=== PATIENT | male | born 1950 | race Caucasian/White ===

== ENCOUNTER 2020-07-30 21:17 | Inpatient (IN) ==
[2020-07-30] MEDS ORDERED: NS 0.9% 1000 ml BAG 1,000 ML IV ONE (21:22)
[2020-07-30] MEDS ORDERED: Iodixanol (CONTRAST) 320 MG/ML 100 ML SDV IV ONE (21:39)
[2020-07-30 21:58] LABS: ABS Basophils 0.1 10^3/ul (0-0.2); ABS Eosinophils 0.7 10^3/ul (0-0.6); ABS Lymphocytes 0.8 10^3/ul (1.0-4.8); ABS Monocytes 1.1 10^3/ul (0-0.8); ABS Neutrophils 11.8 10^3/ul (1.5-7.7); Eosinophil % 4.9 %; Hematocrit 41 % (42-52); Hemoglobin 13.2 g/dL (14.0-18.0); Lymphocyte % 5.7 %; Mean Corpuscular HGB Conc 33 g/dL (31-36); Mean Corpuscular Hemoglobin 28 pg (27-31); Mean Corpuscular Volume 87 fL (80-94); Mean Platelet Volume 8.2 fL (7.4-10.4); Platelet Count 256 10^3/uL (150-450); Red Blood Count 4.69 10^6 /uL (4.18-5.48); Red Cell Distribution Width 15 % (10-15); White Blood Count 14.5 10^3/uL (3.5-10.8)
[2020-07-30 22:17] LABS: ALT 21 U/L (7-52); AST 16 U/L (13-39); Albumin 3.4 g/dL (3.2-5.2); Albumin/Globulin Ratio 1.2 (1-3); Alkaline Phosphatase 73 U/L (34-104); BUN/Creatinine Ratio 26.5 (8-20); Blood Urea Nitrogen 41 mg/dL (6-24); CO2 Carbon Dioxide 30 mmol/L (22-32); Calcium 8.5 mg/dL (8.6-10.3); Chloride 88 mmol/L (101-111); Cholesterol 214 mg/dL; EGFR African American 54.1 (>60); EGFR Non-African American 44.7 (>60); Globulin 2.8 g/dL (2-4); Glucose 133 mg/dL (70-100); HDL Cholesterol 33.8 mg/dL; LDL Cholesterol 138 mg/dL; Sodium 124 mmol/L (135-145); Total Protein 6.2 g/dL (6.4-8.9); Triglycerides 212 mg/dL
[2020-07-30 22:55] LABS: Anion Gap 6 mmol/L (2-11); Potassium 6.1 mmol/L (3.5-5.0)
[2020-07-30 23:03] LABS: Urine Appearance Cloudy; Urine Bilirubin Negative (Negative); Urine Blood Negative (Negative); Urine Color Yellow; Urine Glucose Negative (Negative); Urine Ketones Negative (Negative); Urine Nitrite Negative (Negative); Urine Protein Negative (Negative); Urine Specific Gravity 1.044 (1.010-1.030); Urine Urobilinogen Negative (Negative)
[2020-07-30 23:05] LABS: Activated Partial Thrombo Time 30.2 seconds (26.0-38.0); INR 1.36 (0.82-1.09)
[2020-07-31] MEDS ORDERED: Sodium Polystyrene ORAL.SUSP 15 GM/60 ML BTL PO ONE (00:10)
[2020-07-31] MEDS ORDERED: Calcium Gluconate 1 GM in NS 0.9% 50 ML 50 ML IV ONE (00:10)
[2020-07-31] MEDS ORDERED: Dextrose 50% Syringe 50 ml 25 GM/50 ML SYRINGE IV PUSH ONE (00:11)
[2020-07-31] MEDS ORDERED: NS 0.9% 1000 ml BAG 1,000 ML IV SCH (00:45)
[2020-07-31] MEDS ORDERED: NS 0.9% 50 ML 50 ML ONE (00:59)
[2020-07-31] MEDS ORDERED: CALCIUM GLUCONATE 1GM/50ML NS BAG IV ONE (01:15)
[2020-07-31 03:37] LABS: BUN/Creatinine Ratio 29.5 (8-20); Blood Urea Nitrogen 36 mg/dL (6-24); C Reactive Protein 78.03 mg/L (<8.01); CO2 Carbon Dioxide 23 mmol/L (22-32); Calcium 8.7 mg/dL (8.6-10.3); Chloride 93 mmol/L (101-111); EGFR African American 71.3 (>60); EGFR Non-African American 58.9 (>60); Glucose 110 mg/dL (70-100); Sodium 125 mmol/L (135-145)
[2020-07-31 03:42] LABS: Troponin I 0.05 ng/mL (<0.03)
[2020-07-31 04:10] LABS: Anion Gap 9 mmol/L (2-11); Potassium 5.1 mmol/L (3.5-5.0)
[2020-07-31] MEDS: Polyethylene Glycol 3350 17 GM PACKET PO SCH (10:14)
[2020-07-31 15:07] LABS: CO2 Carbon Dioxide 22 mmol/L (22-32); Calcium 8.1 mg/dL (8.6-10.3); Chloride 93 mmol/L (101-111); Sodium 125 mmol/L (135-145)
[2020-07-31 15:13] LABS: BUN/Creatinine Ratio 26.8 (8-20); Blood Urea Nitrogen 33 mg/dL (6-24); EGFR African American 70.6 (>60); EGFR Non-African American 58.3 (>60); Glucose 151 mg/dL (70-100)
[2020-07-31 15:18] LABS: Anion Gap 10 mmol/L (2-11)
[2020-08-01 06:14] LABS: ABS Basophils 0.1 10^3/ul (0-0.2); ABS Eosinophils 0.9 10^3/ul (0-0.6); ABS Lymphocytes 0.7 10^3/ul (1.0-4.8); ABS Monocytes 1.3 10^3/ul (0-0.8); ABS Neutrophils 9.8 10^3/ul (1.5-7.7); Eosinophil % 7.1 %; Hematocrit 38 % (42-52); Hemoglobin 12.7 g/dL (14.0-18.0); Lymphocyte % 5.7 %; Mean Corpuscular HGB Conc 33 g/dL (31-36); Mean Corpuscular Hemoglobin 29 pg (27-31); Mean Corpuscular Volume 86 fL (80-94); Platelet Count 245 10^3/uL (150-450); Red Blood Count 4.45 10^6 /uL (4.18-5.48); Red Cell Distribution Width 15 % (10-15); White Blood Count 12.9 10^3/uL (3.5-10.8)
[2020-08-01 06:30] LABS: BUN/Creatinine Ratio 27.8 (8-20); Calcium 8.2 mg/dL (8.6-10.3); EGFR African American 92.9 (>60); EGFR Non-African American 76.7 (>60); Potassium 4.1 mmol/L (3.5-5.0)
[2020-08-01] MEDS: Polyethylene Glycol 3350 17 GM PACKET PO SCH (09:03)
[2020-08-01 09:16] LABS: Troponin I 0.07 ng/mL (<0.03)
[2020-08-01] MEDS ORDERED: Gadoteridol (CONTRAST) 279.3 MG/ML 10 ML IV ONE (17:43)
[2020-08-02 06:29] LABS: Hematocrit 39 % (42-52); Hemoglobin 12.7 g/dL (14.0-18.0); Mean Corpuscular HGB Conc 33 g/dL (31-36); Mean Corpuscular Hemoglobin 28 pg (27-31); Mean Corpuscular Volume 86 fL (80-94); Mean Platelet Volume 8.5 fL (7.4-10.4); Platelet Count 279 10^3/uL (150-450); Red Cell Distribution Width 15 % (10-15); White Blood Count 13.9 10^3/uL (3.5-10.8)
[2020-08-02 06:38] LABS: BUN/Creatinine Ratio 27.1 (8-20); Calcium 8.7 mg/dL (8.6-10.3); EGFR Non-African American 77.7 (>60); Potassium 4.6 mmol/L (3.5-5.0)
[2020-08-02] MEDS: Polyethylene Glycol 3350 17 GM PACKET PO SCH (10:30)
[2020-08-02] MEDS ORDERED: fentaNYL 100 mcg/2 ml 50 MCG/ML VIAL ONE (13:54)
[2020-08-02] MEDS ORDERED: Midazolam 5 mg/5 ml VIAL 1 mg/ml 5 ml VIAL (5 mg) ONE (13:54)
[2020-08-02] MEDS ORDERED: Naloxone 0.4 mg VIAL 0.4 mg/ml 1 ml VIAL ONE (13:54)
[2020-08-02] MEDS ORDERED: Flumazenil 0.5 mg/5 ml 0.1 MG/ML 5 ml VIAL ONE (13:55)
[2020-08-02 16:46] LABS: Body Fluid Source Peritonial Fluid
[2020-08-02 20:59] LABS: Body Fluid Mono 19 %; Body Fluid Other Cells 13
[2020-08-03 07:16] LABS: Hematocrit 40 % (42-52); Hemoglobin 13.3 g/dL (14.0-18.0); Mean Corpuscular HGB Conc 33 g/dL (31-36); Mean Corpuscular Hemoglobin 29 pg (27-31); Mean Corpuscular Volume 87 fL (80-94); Mean Platelet Volume 8.5 fL (7.4-10.4); Platelet Count 299 10^3/uL (150-450); Red Blood Count 4.64 10^6 /uL (4.18-5.48); Red Cell Distribution Width 15 % (10-15); White Blood Count 16.8 10^3/uL (3.5-10.8)
[2020-08-03 07:24] LABS: Calcium 8.7 mg/dL (8.6-10.3); Potassium 4.9 mmol/L (3.5-5.0)
[2020-08-03 07:30] LABS: BUN/Creatinine Ratio 25.9 (8-20); EGFR African American 78.7 (>60)
[2020-08-03] MEDS: Polyethylene Glycol 3350 17 GM PACKET PO SCH (10:38)
[2020-08-03] MEDS ORDERED: Magnesium Hydroxide LIQ 30 ML UDC PO ONE (12:35)
[2020-08-03] MEDS: Senna TAB 8.6 mg TAB PO SCH (20:51)
[2020-08-04 06:05] LABS: ABS Basophils 0.1 10^3/ul (0-0.2); ABS Eosinophils 0.5 10^3/ul (0-0.6); ABS Monocytes 1.2 10^3/ul (0-0.8); ABS Neutrophils 13.9 10^3/ul (1.5-7.7); Eosinophil % 3.2 %; Hematocrit 37 % (42-52); Hemoglobin 12.3 g/dL (14.0-18.0); Lymphocyte % 5.7 %; Mean Corpuscular HGB Conc 33 g/dL (31-36); Mean Corpuscular Hemoglobin 29 pg (27-31); Mean Corpuscular Volume 86 fL (80-94); Mean Platelet Volume 8.7 fL (7.4-10.4); Platelet Count 336 10^3/uL (150-450); Red Blood Count 4.32 10^6 /uL (4.18-5.48); Red Cell Distribution Width 15 % (10-15); White Blood Count 16.7 10^3/uL (3.5-10.8)
[2020-08-04 06:16] LABS: BUN/Creatinine Ratio 27.5 (8-20); Calcium 8.7 mg/dL (8.6-10.3); EGFR African American 59.8 (>60); EGFR Non-African American 49.4 (>60)
[2020-08-04 06:39] LABS: Potassium 5.7 mmol/L (3.5-5.0)
[2020-08-04] MEDS: Polyethylene Glycol 3350 17 GM PACKET PO SCH (07:52)
[2020-08-04] MEDS ORDERED: Patiromer POWDER 8.4 GM PAK PO SCH (11:00)
[2020-08-04 14:16] LABS: Fluid Type, Glucose PERITONEAL; Glucose, BF 41 mg/dL
[2020-08-04] MEDS ORDERED: NS 0.9% 500 ml BAG 500 ML IV ONE (17:21)
[2020-08-04] MEDS: Senna TAB 8.6 mg TAB PO SCH (21:04)
[2020-08-05] MEDS ORDERED: Calcium Carb (TUMS) 500 mg CHEW TAB PO PRN (00:53)
[2020-08-05 05:53] LABS: BUN/Creatinine Ratio 27.6 (8-20); Calcium 8.7 mg/dL (8.6-10.3); EGFR African American 45.2 (>60); EGFR Non-African American 37.4 (>60)
[2020-08-05 05:59] LABS: Potassium 6.5 mmol/L (3.5-5.0)
[2020-08-05] MEDS ORDERED: Sodium Polystyrene ORAL.SUSP 15 GM/60 ML BTL PO ONE (06:03)
[2020-08-05 06:24] LABS: Hematocrit 36 % (42-52); Mean Corpuscular HGB Conc 33 g/dL (31-36); Mean Corpuscular Hemoglobin 29 pg (27-31); Mean Corpuscular Volume 87 fL (80-94); Mean Platelet Volume 8.9 fL (7.4-10.4); Platelet Count 336 10^3/uL (150-450); Red Cell Distribution Width 15 % (10-15); White Blood Count 15.8 10^3/uL (3.5-10.8)
[2020-08-05] MEDS ORDERED: Calcium Gluconate 1 GM in NS 0.9% 50 ML 50 ML IV ONE (07:00)
[2020-08-05] MEDS ORDERED: Dextrose 50% Syringe 50 ml 25 GM/50 ML SYRINGE IV PUSH ONE ×2 (07:03→09:00)
[2020-08-05] MEDS: Polyethylene Glycol 3350 17 GM PACKET PO SCH (08:45)
[2020-08-05 10:31] LABS: Corrected Retic Count 3.1 % (0.5-1.5); Hematocrit for Retic CNT 36 % (42-52); Immature Retic Fraction 0.58; RBC Retic Count 4.13 10^6/uL (4.18-5.48)
[2020-08-05] MEDS ORDERED: NS 0.9% 500 ml BAG 500 ML IV ONE (10:40)
[2020-08-05 10:43] LABS: Indirect Bilirubin 0.5 mg/dL (0.3-1.0); Total Bilirubin 0.6 mg/dL (0.2-1.0)
[2020-08-05 10:44] LABS: BUN/Creatinine Ratio 28.7 (8-20); EGFR African American 46.1 (>60); EGFR Non-African American 38.1 (>60); Potassium 4.9 mmol/L (3.5-5.0)
[2020-08-05 11:01] LABS: Potassium 4.9 mmol/L (3.5-5.0)
[2020-08-05] MEDS: Patiromer POWDER 8.4 GM PAK PO SCH (12:35)
[2020-08-05 18:50] LABS: Phospholipid IgM AB <9.4 MPL
[2020-08-05] MEDS: Senna TAB 8.6 mg TAB PO SCH (21:30)
[2020-08-05] MEDS: Lactulose 30 ml UDC PO SCH (21:31)
[2020-08-06] MEDS: Ondansetron 4 mg VIAL 2 MG/ML 2 ml VIAL IV PRN ×2 (01:22→21:00)
[2020-08-06] MEDS ORDERED: Morphine 2 MG/ML SYRINGE IV ONE (04:50)
[2020-08-06 05:23] LABS: ABS Basophils 0.1 10^3/ul (0-0.2); ABS Eosinophils 0.5 10^3/ul (0-0.6); ABS Lymphocytes 1.1 10^3/ul (1.0-4.8); ABS Monocytes 1.3 10^3/ul (0-0.8); ABS Neutrophils 16.2 10^3/ul (1.5-7.7); Eosinophil % 2.5 %; Hematocrit 35 % (42-52); Hemoglobin 11.5 g/dL (14.0-18.0); Lymphocyte % 5.7 %; Mean Corpuscular HGB Conc 33 g/dL (31-36); Mean Corpuscular Hemoglobin 29 pg (27-31); Mean Corpuscular Volume 86 fL (80-94); Mean Platelet Volume 8.7 fL (7.4-10.4); Platelet Count 367 10^3/uL (150-450); Red Blood Count 4.02 10^6 /uL (4.18-5.48); Red Cell Distribution Width 16 % (10-15); White Blood Count 19.2 10^3/uL (3.5-10.8)
[2020-08-06 05:40] LABS: BUN/Creatinine Ratio 28.4 (8-20); Calcium 8.8 mg/dL (8.6-10.3); EGFR African American 44.6 (>60); EGFR Non-African American 36.9 (>60); Magnesium 2.9 mg/dL (1.9-2.7)
[2020-08-06 05:41] LABS: Potassium 5.4 mmol/L (3.5-5.0)
[2020-08-06] MEDS: Lactulose 30 ml UDC PO SCH ×3 (09:24→19:47)
[2020-08-06] MEDS: Polyethylene Glycol 3350 17 GM PACKET PO SCH (09:26)
[2020-08-06] MEDS: Patiromer POWDER 8.4 GM PAK PO SCH (10:20)
[2020-08-06] MEDS: HYDROmorphone 0.5 MG/0.5 ML SYRINGE IV SLOW PU PRN (15:03)
[2020-08-06 16:54] LABS: Body Fluid Source Peritonial Fluid
[2020-08-06] MEDS ORDERED: cefTRIAXone 1 gm/50 mL NS BAG 1 GM/50 ML BAG IVPB SCH (17:00)
[2020-08-06 17:39] LABS: BUN/Creatinine Ratio 28.9 (8-20); Calcium 8.9 mg/dL (8.6-10.3); EGFR African American 42.7 (>60); EGFR Non-African American 35.3 (>60)
[2020-08-06 17:42] LABS: Potassium 5.6 mmol/L (3.5-5.0)
[2020-08-06 17:52] LABS: Body Fluid Mono 29 %; Body Fluid Other Cells 1
[2020-08-06] MEDS ORDERED: Albumin Human 25% 25 GM/100 ML BTL IV ONE (18:27)
[2020-08-06] MEDS ORDERED: Albumin Human 25% 25 GM/100 ML BTL IV SCH (19:00)
[2020-08-06] MEDS: Albumin Human 25% 25 GM/100 ML IV SCH ×3 (19:40→23:11)
[2020-08-06] MEDS: Sodium Polystyrene ORAL.SUSP 15 GM/60 ML BTL PO SCH (19:43)
[2020-08-06] MEDS: Senna TAB 8.6 mg TAB PO SCH (19:48)
[2020-08-06] MEDS ORDERED: Piperacillin/Tazobac ADVAN 3.375 GM in NS 0.9% 100 ml BAG 100 ML IVPB ONE (22:41)
[2020-08-06] MEDS ORDERED: Zosyn per Pharmacy NOTE FOLLOW UP SCH (23:00)
[2020-08-06 23:25] LABS: BUN/Creatinine Ratio 28.2 (8-20); Calcium 8.7 mg/dL (8.6-10.3); EGFR African American 38.9 (>60); EGFR Non-African American 32.2 (>60)
[2020-08-06 23:31] LABS: Potassium 5.6 mmol/L (3.5-5.0)
[2020-08-07] MEDS ORDERED: Piperacillin/Tazobac ADVAN 3.375 GM in NS 0.9% 100 ml BAG 100 ML IVPB ONE (00:17)
[2020-08-07] MEDS: Sodium Polystyrene ORAL.SUSP 15 GM/60 ML BTL PO SCH ×3 (00:39→12:17)
[2020-08-07] MEDS ORDERED: Zosyn per Pharmacy NOTE FOLLOW UP SCH (01:00)
[2020-08-07] MEDS ORDERED: Prochlorperazine 5 mg/ml 2 ml VIAL (10 mg) IV ONE (02:13)
[2020-08-07] MEDS: ZOSYN 3.375 GM Q8H per EXTENDED INFUSION IV SCH ×3 (04:55→20:58)
[2020-08-07 05:43] LABS: INR 1.35 (0.82-1.09)
[2020-08-07 06:21] LABS: Hematocrit 32 % (42-52); Hemoglobin 10.7 g/dL (14.0-18.0); Mean Corpuscular HGB Conc 33 g/dL (31-36); Mean Corpuscular Hemoglobin 29 pg (27-31); Mean Corpuscular Volume 87 fL (80-94); Mean Platelet Volume 8.7 fL (7.4-10.4); Platelet Count 358 10^3/uL (150-450); Red Cell Distribution Width 16 % (10-15); White Blood Count 20.8 10^3/uL (3.5-10.8)
[2020-08-07] MEDS: HYDROmorphone 0.5 MG/0.5 ML SYRINGE IV SLOW PU PRN ×2 (06:30→17:27)
[2020-08-07 07:41] LABS: ABS Basophils 0.1 10^3/ul (0-0.2); ABS Eosinophils 0.1 10^3/ul (0-0.6); ABS Lymphocytes 0.7 10^3/ul (1.0-4.8); ABS Monocytes 1.2 10^3/ul (0-0.8); ABS Neutrophils 18.6 10^3/ul (1.5-7.7); Eosinophil % 0.7 %; Lymphocyte % 3.6 %
[2020-08-07 08:17] LABS: Hematocrit 33 % (42-52); Mean Corpuscular HGB Conc 33 g/dL (31-36); Mean Corpuscular Hemoglobin 29 pg (27-31); Mean Corpuscular Volume 86 fL (80-94); Mean Platelet Volume 9.1 fL (7.4-10.4); Platelet Count 360 10^3/uL (150-450); Red Blood Count 3.81 10^6 /uL (4.18-5.48); Red Cell Distribution Width 16 % (10-15); White Blood Count 18.8 10^3/uL (3.5-10.8)
[2020-08-07] MEDS: Polyethylene Glycol 3350 17 GM PACKET PO SCH (08:35)
[2020-08-07] MEDS: Patiromer POWDER 8.4 GM PAK PO SCH (08:35)
[2020-08-07] MEDS: Lactulose 30 ml UDC PO SCH ×2 (08:35→13:36)
[2020-08-07] MEDS: Pantoprazole 80 mg in NS BAG 80 MG/250 ML BAG IV SCH ×2 (08:58→17:42)
[2020-08-07 09:09] LABS: ABS Neutrophils 16.9 10^3/ul (1.5-7.7); Polychromasia 1+
[2020-08-07] MEDS: NS 0.9% 1000 ml BAG 1,000 ML IV SCH (12:16)
[2020-08-07 15:46] LABS: Albumin 3.6 g/dL (3.2-5.2); Albumin/Globulin Ratio 1.6 (1-3); BUN/Creatinine Ratio 26.7 (8-20); Calcium 8.3 mg/dL (8.6-10.3); EGFR African American 33.3 (>60); EGFR Non-African American 27.5 (>60); Globulin 2.3 g/dL (2-4); Magnesium 2.9 mg/dL (1.9-2.7); Total Bilirubin 1.2 mg/dL (0.2-1.0); Total Protein 5.9 g/dL (6.4-8.9)
[2020-08-07 15:49] LABS: Potassium 5.2 mmol/L (3.5-5.0)
[2020-08-07] MEDS ORDERED: HYDROmorphone 0.5 MG/0.5 ML SYRINGE IV ONE (19:54)
[2020-08-07] MEDS ORDERED: NS 0.9% 100 ml BAG 100 ML ONE (20:11)
[2020-08-07] MEDS: Ondansetron 4 mg VIAL 2 MG/ML 2 ml VIAL IV PRN (20:15)
[2020-08-08] MEDS: HYDROmorphone 0.5 MG/0.5 ML SYRINGE IV SLOW PU PRN ×3 (00:04→18:34)
[2020-08-08] MEDS ORDERED: hydrOXYzine IM 50 MG/ML VIAL IM ONE (03:33)
[2020-08-08] MEDS: Pantoprazole 80 mg in NS BAG 80 MG/250 ML BAG IV SCH (03:50)
[2020-08-08 04:40] LABS: Hematocrit 31 % (42-52); Hemoglobin 10.5 g/dL (14.0-18.0)
[2020-08-08] MEDS: ZOSYN 3.375 GM Q8H per EXTENDED INFUSION IV SCH ×2 (05:45→14:04)
[2020-08-08 08:04] LABS: BUN/Creatinine Ratio 27.9 (8-20); Calcium 8.3 mg/dL (8.6-10.3); EGFR African American 35.7 (>60); EGFR Non-African American 29.5 (>60)
[2020-08-08 09:38] LABS: Anti-Glial/Neuronal Nuc Ab-1 A Negative titer (<1:240); Anti-Neuronal Nuclear Ab Type1 Negative titer (<1:240); Anti-Neuronal Nuclear Ab Type2 Negative titer (<1:240); Anti-Neuronal Nuclear Ab Type3 Negative titer (<1:240); CRMP-5 IgG Antibody Negative titer (<1:240); Purkinje Cell Cytoplasm Typ Tr Negative titer (<1:240); Purkinje Cell Cytoplasm Type 1 Negative titer (<1:240); Purkinje Cell Cytoplasm Type 2 Negative titer (<1:240)
[2020-08-08 10:27] LABS: Hepatitis B Surface Antigen Nonreactive (Nonreactive)
[2020-08-08 10:45] LABS: Hepatitis C Antibody Negative (Negative)
[2020-08-08] MEDS: NS 0.9% 1000 ml BAG 1,000 ML IV SCH (11:41)
[2020-08-08 11:58] LABS: DRVVT Screen Ratio 1.17 ratio (<1.20); LAC APTT 28 sec (25 - 37); LAC INR 1.5 (0.9-1.1); Prothrombin Time(LAC) 16.7 sec (9.4 - 12.5)
[2020-08-08 12:29] LABS: HIV 4th Generation Nonreactive (Nonreactive)
[2020-08-08 12:45] LABS: Thrombin Time (Bovine), P 20.3 sec
[2020-08-08 12:56] LABS: LAC PT Mix 1:1 13.7 sec (9.4 - 12.5)
[2020-08-08 13:03] LABS: Phosphorus 5.1 mg/dL (2.5-5.0)
[2020-08-09] MEDS: ZOSYN 3.375 GM Q8H per EXTENDED INFUSION IV SCH ×4 (00:51→20:11)
[2020-08-09] MEDS: HYDROmorphone 0.5 MG/0.5 ML SYRINGE IV SLOW PU PRN ×3 (05:37→20:11)
[2020-08-09] MEDS: NS 0.9% 1000 ml BAG 1,000 ML IV SCH (07:19)
[2020-08-09] MEDS ORDERED: Pantoprazole VIAL 40 MG VIAL IV SCH (10:00)
[2020-08-09] MEDS ORDERED: Morphine ORAL CONCENTRATE 5 MG/0.25 ML ORAL.SYRIN SL PRN (13:12)
[2020-08-09] MEDS ORDERED: Midazolam 2 mg/2 ml VIAL 1 mg/ml 2 ml VIAL (2 mg) ONE (14:53)
[2020-08-09] MEDS ORDERED: fentaNYL 100 mcg/2 ml 50 MCG/ML VIAL ONE (14:53)
[2020-08-10] MEDS: HYDROmorphone 0.5 MG/0.5 ML SYRINGE IV SLOW PU PRN ×3 (00:08→05:07)
[2020-08-10 04:55] VITALS: BP 105/62
[2020-08-10] MEDS: ZOSYN 3.375 GM Q8H per EXTENDED INFUSION IV SCH (05:03)
== END 2020-08-10 08:10 | disposition home or self-care (01) | DRG 64 ==
LOC: ED 21:17 → MEDTELE 21:17 → ICU 08-06 22:41 → MEDTELE 08-08 16:49
PROVIDERS: ADMIT Internal Medicine; ATTEND Internal Medicine